=== PATIENT | female | born 1935 | race Caucasian/White ===

== ENCOUNTER 2017-05-30 13:42 | Inpatient (IN) | payer OTHER ==
[~2017-05-30] VITALS: Ht 167.6 cm; Wt 92.1 kg
[~2017-05-30 13:42] MED LIST: AMBIEN5 MG PO; ASPIR 8181 MG PO; BENAZEPRIL HYDR40 M1 PO; BUSPIRONE15 M1 PO; COUMADIN5 MG PO; CYMBALTA60 M1 PO; METFORMIN HCL1000 MG PO; NEXIUM PO; OXYBUTYNIN CHLOR5 MG PO; PAC PO; PLA75 PO; ROC1I IM; TRAZODONE HYDR150 MG PO
--- NOTE | 2017-05-30 13:54 | NUR ---
PT BIB AMBULANCE FOR C/O DIZZINESS WHEN STANDING X 1 WEEK. PT STATES SHE ALSO HAS N/D. PT RECIEVED 4MG ZOFRAN ODT HIMS MANAGER BY MEDICS. PT AWAKE AND ALERT, RESP EVEN AND UNLABORED. BLOOD GLUCOSE HIMS MANAGER WAS 146 PER MEDICS. PT PLACED ON FULL MONITORS, BEDSIDE RAILS UP FOR SAFTEY. EKG DONE AT BEDSIDE
--- NOTE | 2017-05-30 14:03 | NUR ---
MSE COMPLETED BY DR COTTON
--- NOTE | 2017-05-30 14:22 | NUR ---
PT REFUSING IV AT THIS TIME
[2017-05-30 14:33] LABS: BASOPHIL % 0.4 % (0-2); PLATELET COUNT 340 x10^3mcL (130-400)
[2017-05-30 14:35] LABS: RED CELL DISTRIBUTION WIDTH 22.6 % (11.5-14.5)
[2017-05-30 14:41] LABS: CALCIUM 8.5 mg/dL (8.5-10.1); CARBON DIOXIDE 24.9 mmol/L (21-32); CHLORIDE SERUM 103 mmol/L (98-107); CREATININE SERUM 1.1 mg/dL (0.6-1.0); GLUCOSE SERUM 121 mg/dL (74-106); POTASSIUM SERUM 3.3 mmol/L (3.5-5.1); SODIUM SERUM 141 mmol/L (136-145)
[2017-05-30 14:45] LABS: ALBUMIN 3.7 g/dL (3.4-5.0); ALKALINE PHOSPHATASE 82 U/L (46-116); ALT/SGPT 13 U/L (14-59); AST/SGOT 13 U/L (15-37); BILIRUBIN TOTAL 0.4 mg/dL (0.20-1.00); TOTAL PROTEIN, SERUM 7.1 g/dL (6.4-8.2)
[2017-05-30 14:50] LABS: rbc morphology (normal/abnorm) ABNORMAL (NORMAL)
--- NOTE | 2017-05-30 14:51 | NUR ---
DR COTTON AT BEDSIDE
--- NOTE | 2017-05-30 15:16 | NUR ---
PT WHEELED TO TO PROVIDE URINE SAMPLE. ATTEMPTED TO AMBULATE BUT FELT DIZZY
[2017-05-30] MEDS ORDERED: METOPROLOL SUCC25 M2 PO (16:59)
[2017-05-30] MEDS ORDERED: FUROSEMIDE20 MG PO (16:59)
--- NOTE | 2017-05-30 17:00 | NUR ---
RESIDENT AT BEDSIDE FOR EVAL. PT DRINKING COFFEE THAT WAS APPROVED BY DR COTTON.
--- NOTE | 2017-05-30 17:20 | NUR ---
REC'D PT FROM ER VIA [facility]. PT IS AAOX4. C/O DIZZINESS. TELE #4 SR-SA. DENIES PAIN OR DISCOMFORT. RESP EVEN AND UNLABORED. NO SOB NOTED. TRACE EDEMA NOTED TO BLE. PT C/O PAIN UPON URINATION. GEN WEAKNESS NOTED. IV NOTED TO . ROCEPHIN CONTINUES TO INFUSE. ORIENTED PT TO CALL LIGHT. BED IN LOWEST POSITION. WILL ENDORSE TO PRIMARY RN.
[2017-05-30 17:34] VITALS: BP 142/74
--- NOTE | 2017-05-30 18:07 | NUR ---
RECEIVED PT RESOURCE NURSE.AAO X4.DENIES ANY PAIN/DISCOMFORT.CLAIMS TO FEEL A LITTLE BIT DIZZY.INSTRUCTED PT NOT TO GET UP BY HERSELF TO CALL FOR ASSISTANCE WHEN NEEDED.IV ROCEPHINE FINISHED.STARTED HER ON IVF NS GOING AT 100 ML/HR INFUSING WELL.WILL CONTINUE TO MONITOR PT.
[2017-05-30 18:12] LABS: CHOLESTEROL/HDL RATIO 3.1; MAGNESIUM 1.3 mg/dL (1.8-2.4); PHOSPHOROUS 3.7 mg/dL (2.5-4.9)
[2017-05-30 18:21] LABS: FREE T4 1.2 ng/dL (0.76-1.46); FREE THYROXINE INDEX 3.5 ug/dL (1.4-4.5); T3 TOTAL 0.96 ng/mL; T4(THYROXINE) 9.8 ug/dL (4.7-13.3)
--- NOTE | 2017-05-30 19:11 | NUR ---
NO SIGNIFICANT CHANGE NOTED.WILL ENDORSE TO NEXT SHIFT.
--- NOTE | 2017-05-30 19:30 | NUR ---
REC'D PT FROM DAY NURSE. PT AAOX4, SPEECH CLEAR, FOLLOWS COMMANDS. C/O DIZZINESS. WILL ASK RESIDENT FOR MECLIZINE. TELE 4. DENIES CP OR PALPITATIONS. DENIES RESP DISTRESS OR SOB. BREATHING EVEN/UNLABORED ON RA. DENIES ABD PAIN, TENDERNESS, OR N/V. REPORTS LAST BM TO BE DIARRHEA. VOIDING WITH COMPLAINT OF DYSURIA. UA COLLECTED. GEN WEAKNESS. AMB WITH WALKER AT HOME. UP WITH ASSIST. SKIN INTACT. DENIES PAIN OR DISCOMFORT AT THIS TIME. IV TO RH PATENT AND INFUSING, SITE WNL. CALL LIGHT WITHIN REACH, BED AT LOWEST POSITION. WILL CONTINUE TO MONITOR.
--- NOTE | 2017-05-30 20:10 | NUR ---
PT C/O DIZZINESS. MECLIZINE GIVEN PER ORDER. WILL MONITOR FOR RELIEF.
[2017-05-30 21:11] VITALS: BP 144/70
[2017-05-30 21:37] LABS: microscopic required? YES; urine erythrocyte TRACE (NEGATIVE)
[2017-05-30 21:46] LABS: AMPHETAMINE QUAL UR NONE DETECTED (NEG <=1000)
--- NOTE | 2017-05-30 22:33 | NUR ---
AMBIEN GIVEN TO PT PER ORDER FOR INSOMNIA.
[2017-05-30 22:51] LABS: IRON 25 ug/dL (50-170); RED BLOOD CELLS 3.77 M/mm3 (4.10-5.10); TOTAL IRON BINDING CAPACITY 330 ug/dL (250-450)
--- NOTE | 2017-05-31 00:30 | NUR ---
PT STILL UNABLE TO SLEEP. REPORTS TAKING ADVIL PM X2 AT NIGHT ALONG WITH AN AMBIEN. DR. LEARY MADE AWARE. BENADRYL GIVEN PER ORDER. PUDDING GIVEN PER REQUEST. WILL MONITOR FOR RELIEF.
--- NOTE | 2017-05-31 01:08 | NUR ---
PT RESTING IN BED WATCHING TV. TURNED LIGHTS OFF SO PT MAY FALL ASLEEP. NO SIGNS OF DISTRESS NOTED. BREATHING EVEN/UNLABORED ON RA. CALL LIGHT WITHIN REACH, BED AT LOWEST POSITION. WILL CONTINUE TO MONITOR.
--- NOTE | 2017-05-31 03:01 | NUR ---
PT IN BED WATCHING TV. STILL UNABLE TO SLEEP. DR. LEARY MADE AWARE. TRAZADONE GIVEN PER ORDER. PT REPORTS SHE USUALLY TAKES A SMALL PIECE OF "MARIJUANA BROWNIE" TO HELP HER SLEEP. WILL CONTINUE TO MONITOR.
--- NOTE | 2017-05-31 06:02 | NUR ---
PT RESTING IN BED WITH EYES CLOSED. LAYING ON L SIDE. AWAKENS EASILY. NO COMPLAINTS AT THIS TIME. DENIES DIZZINESS, PAIN, OR DISCOMFORT. BS 109, NO COVERAGE. NO SIGNIFICANT CHANGES DURING SHIFT. CALL LIGHT WITHIN REACH, BED AT LOWEST POSITION. WILL ENDORSE TO DAY NURSE.
[2017-05-31 06:34] VITALS: BP 151/69
[2017-05-31 07:32] LABS: CALCIUM 8.2 mg/dL (8.5-10.1); CARBON DIOXIDE 28.1 mmol/L (21-32); CHLORIDE SERUM 107 mmol/L (98-107); CREATININE SERUM 0.8 mg/dL (0.6-1.0); GLUCOSE SERUM 108 mg/dL (74-106); MAGNESIUM 2.3 mg/dL (1.8-2.4); POTASSIUM SERUM 3.7 mmol/L (3.5-5.1); SODIUM SERUM 141 mmol/L (136-145)
[2017-05-31 07:40] LABS: PLATELET COUNT 307 x10^3mcL (130-400); RED CELL DISTRIBUTION WIDTH 21.9 % (11.5-14.5)
[2017-05-31 07:42] LABS: rbc morphology (normal/abnorm) ABNORMAL (NORMAL)
--- NOTE | 2017-05-31 07:50 | NUR ---
AT 0710 - RECEIVED PATIENT FROM NIGHT NURSE. PATIENT AWAKE, ALERT AND ORIENTED X 4. DENIES ANY PAIN OR DIZZINESS. MONITOR SHOWING SINUS RHYTHM; RATE 100. IV INFUSING NS AT 100ML/HR. ULTRASOUND AT BEDSIDE. AT 0740 - SITTING UP IN BED FOR BREAKFAST.
--- NOTE | 2017-05-31 09:12 | NUR ---
PATIENT C/O REFLUX, "ALL THE WAY TO THE THROAT". NO SOB. VSS. SINUS RHYTHM ON MONITOR. SPOKE WITH DR HERNANDEZ. AWAITING ORDERS.
[2017-05-31 09:14] VITALS: BP 140/57
--- NOTE | 2017-05-31 10:52 | NUR ---
COMMENCED ON PO PRTONIX. FIRST DOSE ADMINISTERED. SEEN BY DR RO. PATIENT AMBULATED TO BATHROOM WITH ASSISSTANCE. NOW BACK IN BED BUT C/O NAUSEA. MEDICATED WITH ZOFRAN PER EMAR.
--- NOTE | 2017-05-31 11:49 | NUR ---
SEEN BY DR SHEA DURING MORNING ROUNDS. DR MÉNDEZ, DR DO, [place] AND MYSELF DURING MORNING ROUNDS ALSO PRESENT. DR SHEA SPOKE WITH PATIENT ABOUT PLAN OF TREATMENT. DR ANSWERED PATIENT'S QUESTIONS.
[2017-05-31 12:00] VITALS: BP 131/65
--- NOTE | 2017-05-31 16:34 | NUR ---
IV INFUSION RATE CHANGED TO 30ML/HR NS.
[2017-05-31 17:08] VITALS: BP 143/61
--- NOTE | 2017-05-31 18:12 | NUR ---
PATIENT C/O DIZZINESS EVEN IN BED. MEDICATED WITH MECLIZINE PER EMAR. VSS AND WNL. AFEBRILE. MONITOR SHOWING SINUS ARRHYTHMIA WITH OCCASIONAL PAC'S; RATE 70'S. NO C/O PAIN. IV INFUSING NS AT 30ML/HR. FAMILY AT BEDSIDE. WILL ENDORSE CARE TO NIGHT NURSE.
--- NOTE | 2017-05-31 19:20 | NUR ---
REC'D PT FROM DAY NURSE. PT AAOX4, SPEECH CLEAR, FOLLOWS COMMANDS. NO SIGNS OF DISTRESS NOTED. BREATHING EVEN/UNLABORED ON RA. TELE 4. DENIES CP OR PALPITATIONS. C/O DIZZINESS. MECLIZINE NOT YET DUE. NO EDEMA NOTED. DENIES ABD PAIN, TENDERNESS, OR N/V. VOIDING FREELY WITH SOME INCONTINENCE. POSITIVE FOR UTI. GEN WEAKNESS. USES WALKER AT HOME. SKIN INTACT. IV TO RH PATENT AND INFUSING, SITE WNL. CALL LIGHT WITHIN REACH, BED AT LOWEST POSITION. WILL CONTINUE TO MONITOR.
--- NOTE | 2017-05-31 20:42 | NUR ---
GRANDSON AT BEDSIDE. PT HAD QUESTIONS REGARDING HER CARE AND PURPOSE OF STAY. ALL QUESTIONS ANSWERED TO PT AND FAMILY'S SATISFACTION.
[2017-05-31 21:16] VITALS: BP 137/47
--- NOTE | 2017-05-31 21:22 | NUR ---
PT C/O MILD NAUSEA. ZOFRAN GIVEN PER ORDER. WILL MONITOR FOR RELIEF.
--- NOTE | 2017-05-31 22:57 | NUR ---
PT UNABLE TO SLEEP. AMBIEN GIVEN PER ORDER. NO COMPLAINTS OF DIZZINESS OR NAUSEA AT THIS TIME. WILL CONTINUE TO MONITOR.
--- NOTE | 2017-06-01 00:06 | NUR ---
PT RESTING IN BED WITH EYES CLOSED. NO SIGNS OF DISTRESS NOTED. BREATHING EVEN/UNLABORED ON RA. CALL LIGHT WITHIN REACH, BED AT LOWEST POSITION. WILL CONTINUE TO MONITOR.
[2017-06-01 05:35] VITALS: BP 140/68
--- NOTE | 2017-06-01 05:55 | NUR ---
PT RESTING IN BED WITH EYES CLOSED. AWAKENS EASILY BUT DROWSY. NO COMPLAINTS AT THIS TIME. DENIES PAIN OR DISCOMFORT. BS 106, NO COVERAGE. NO SIGNIFICANT CHANGES DURING SHIFT. CALL LIGHT WITHIN REACH, BED AT LOWEST POSITION. WILL ENDORSE TO DAY NURSE.
[2017-06-01 07:32] LABS: BASOPHIL % 0.9 % (0-2); PLATELET COUNT 285 x10^3mcL (130-400); RED CELL DISTRIBUTION WIDTH 21.9 % (11.5-14.5)
[2017-06-01 07:34] LABS: rbc morphology (normal/abnorm) ABNORMAL (NORMAL)
[2017-06-01 07:38] LABS: CARBON DIOXIDE 29.2 mmol/L (21-32); CHLORIDE SERUM 107 mmol/L (98-107); CREATININE SERUM 0.8 mg/dL (0.6-1.0); GLUCOSE SERUM 111 mg/dL (74-106); POTASSIUM SERUM 3.7 mmol/L (3.5-5.1); SODIUM SERUM 141 mmol/L (136-145)
--- NOTE | 2017-06-01 08:00 | NUR ---
RECEIVE PT IN BED A/A/OX4 DENIES ANY RABAGO. RESP EVEN AND UNLABORED WITH CLEAR BS BILAT. DENIES ANY CP/PRESSURE AT THIS TIME. NSR WITH PVC'S AND PAC'S. NO EDEMA NOTED WITH SCDS TO BLE. IVF NS AT 30ML/HR TO RH. ABD SOFT, NONTENDER WITH ACTIVE BS X4. DENIES ANY N/V REPORTS LOOSE STOOL, AND STRESS INCONTINENCE. USES WALKER AT HOME, [place] [facility] [place]. SKIN WARM AD DRY. CALL LIGHT IN REACH NEEDS ATTENDED TO.
[2017-06-01 09:24] VITALS: BP 143/47
[2017-06-01] MEDS ORDERED: LEVOFLOXACIN500 M1 PO ×2 (09:37→12:45)
[2017-06-01] MEDS ORDERED: LAC PO (09:43)
[2017-06-01] MEDS ORDERED: FERROUS SULFAT325 M2 PO (09:45)
[2017-06-01] MEDS ORDERED: COL100 PO (09:45)
[2017-06-01 11:48] VITALS: BP 122/56
--- NOTE | 2017-06-01 13:15 | NUR ---
PT VOIDED AT THIS TIME. TOLERATED LUNCH DENIES ANY PAIN/DISCOMFORT. REMAINS RESTLESS WITH SOME IMPROVEMENT.
--- NOTE | 2017-06-01 13:30 | NUR ---
PT REQUESTED FOR D/C TO BE COMPLETED SINCE SHE WAS EXPECTING ARRIVAL OF DAUGHETR ANY MINUTE. WILL PROVIDE WITH D/C INSTRUCTIONS.
--- NOTE | 2017-06-01 14:00 | NUR ---
PT PROVIDED WITH D/C HOME INSTRUCTIONS. PROVIDED WITH MEDICATION EDUCATION. MADE AWARE TO CALL DR. LUCAS AND SCHEDULE APPT WITH IN 3-5 DAYS. PT VERBALIZED UNDERSTANDING IV AND TELE D/C'D. PT WAITING FOR DAUGHTER ARRIVAL PRIOR TO D/C.
--- NOTE | 2017-06-01 16:01 | NUR ---
PT STILL WAITING FOR FAMILY ARRIVAL STATED SHE HAD SPOKEN WITH DAUGHTER IN THE MORNING AND MADE HER AWARE OF D/C PLAN AT LUNCH TIME. STATED SHE HAD ATTEMPTED TO CALL FAMILY AND NO ONE HAS RESPONDED. WILL CONT TOMONITOR.
--- NOTE | 2017-06-01 16:24 | NUR ---
PT LEFT FLOOR TO LOBBY VIA WC ACCOMPANIED BY OUT OF TOWN COLLECTION CLERK AND DAUGHTER WITH ALL PERSONAL BELONGINGS IN HAND FREE OF ANY APPARENT DISTRESS.
[2017-06-02] MEDS ORDERED: BACTRIM1 TAB PO (15:35)
== END 2017-06-01 16:25 | disposition home or self-care (01) | DRG 391 ==
LOC: ED 13:42 → DU 16:37
PROVIDERS: Emergency Medicine; Student in an Organized Health Care Education/Training Program; ADMIT Family Medicine
DX: K21.9 Gastro-esophageal reflux disease without esophagitis (principal); N17.0 Acute kidney failure with tubular necrosis; N39.0 Urinary tract infection, site not specified; R07.9 Chest pain, unspecified; M94.0 Chondrocostal junction syndrome [Tietze]; I48.91 Unspecified atrial fibrillation; I10 Essential (primary) hypertension; E11.9 Type 2 diabetes mellitus without complications; D50.9 Iron deficiency anemia, unspecified; E87.6 Hypokalemia; E83.42 Hypomagnesemia; E66.9 Obesity, unspecified; Z68.31 Body mass index [BMI] 31.0-31.9, adult; F17.210 Nicotine dependence, cigarettes, uncomplicated; Z79.01 Long term (current) use of anticoagulants; Z79.82 Long term (current) use of aspirin; F32.9 Major depressive disorder, single episode, unspecified; Z96.643 Presence of artificial hip joint, bilateral; Z96.653 Presence of artificial knee joint, bilateral
CPT/HCPCS: 82962; 84439; 97110-GP; J0696; J2405; J3475; J3490; J7030; J7040; J8597; Q0092; Q0163